=== PATIENT | male | born 1970 | race Caucasian/White ===

== ENCOUNTER 2017-12-05 06:25 | Inpatient (IN) | payer OTHER ==
[2017-11-26 15:51] VITALS: BMI 30.4
[2017-12-06 14:16] VITALS: BP 133/82; PULSE 66; TEMP 97.9
== END 2017-12-06 15:05 | disposition home or self-care (01) | DRG 304 ==
LOC: FM/S 06:25
PROVIDERS: ADMIT Orthopaedic Surgery Orthopaedic Surgery of the Spine; ATTEND Orthopaedic Surgery Orthopaedic Surgery of the Spine
PROC: 0SG30AJ Fusion of Lumbosacral Joint with Interbody Fusion Device, Posterior Approach, Anterior Column, Open Approach (ICD-10-PCS; principal; 2017-12-05)
PROC: 0ST40ZZ Resection of Lumbosacral Disc, Open Approach (ICD-10-PCS; 2017-12-05)
DX: M51.27 Other intervertebral disc displacement, lumbosacral region (principal); M43.17 Spondylolisthesis, lumbosacral region
CPT/HCPCS: 36415; 72100-TC-FY; 76001-TC-FY; 87389; 94760; 97116-GP; 97162-GP; J1100

== ENCOUNTER 2018-03-24 08:48 | Inpatient (IN) | payer OTHER ==
[2018-03-21 11:52] VITALS: BMI 30.7
[2018-03-24] MEDS ORDERED: oxyCODONE HCL 10 MG SUSTAINED ACTING TABLET PO ONE (10:18)
[2018-03-24] MEDS ORDERED: THROMBIN (BOVINE) 5,000 UNIT VIAL TP ONE (11:51)
[2018-03-24] MEDS ORDERED: LIDOCAINE 1%/EPI 1:100000 (20 ML MULTI DOSE VIAL) ONE (11:51)
[2018-03-24] MEDS ORDERED: BUPIVACAINE HCL/PF (5 MG/ML) 30 ML VIAL IJ ONE (12:29)
[2018-03-24] MEDS ORDERED: DEXAMETHASONE SOD PHOSPHATE/PF 10 MG/ML SDV ONE (12:29)
[2018-03-24] MEDS ORDERED: MIDAZOLAM HCL 2 MG/2 ML SINGLE DOSE VIAL ONE ×3 (12:29→14:17)
--- NOTE | 2018-03-24 13:38 | HP ---
Admitting History and Physical - Admission History of Present Illness: The patient is a 47 yo male who presents today for surgery with Dr. Gaxiola. He had a L5-S1 fusion in December with revision of the Left L5 hardware. He continues to have left leg pain with numbness/tingling. The patient uses gabapentin and percocet for pain control. He denies any fevers/SOB/CP today. History Source: Patient Limitations to Obtaining History: No Limitations - Past Medical History SPORTS ADMINISTRATOR: No: Migraine, Seizure Cardiovascular: No: Deep Vein Thrombosis, HTN Pulmonary: No: Asthma, Bronchitis Gastrointestinal: No: Constipation, Diverticulitis, Gastritis Renal/: Yes: Other (has 1 kidney(since )). No: Renal Calculi, UTI Heme/Onc: No: Bleeding Disorder, Hypercoaguable State Musculoskeletal: Yes: Chronic low back pain (left leg) Endocrine: No: Diabetes Mellitus - Past Surgical History Additional Past Surgical History: L5-S1 fusion Revision of Left L5 hardware - Smoking History Smoking history: Former smoker Have you smoked in the past 12 months: Yes Aproximately how many cigarettes per day: 20 If you are a former smoker, when did you quit?: 12/05/17 - Alcohol/Substance Use Hx Alcohol Use: No Home Medications - Allergies Allergies/Adverse Reactions: Allergies Allergy/AdvReac Type Severity Reaction Status Date / Time No Known Allergies Allergy Verified 03/24/18 09:09 - Home Medications Home Medications: Ambulatory Orders Ranitidine HCl [Zantac] 150 mg PO BID 12/05/17 Gabapentin 600 mg PO TID 03/21/18 Orphenadrine Citrate 600 mg PO TID 03/21/18 Oxycodone HCl/Acetaminophen [Percocet 5-325 mg Tablet] 1 tab PO Q8H PRN Review of Systems - Review of Systems Constitutional: reports: Fever. denies: Chills Neck: denies: Decreased ROM, Pain on Movement Cardiovascular: denies: Chest Pain, Palpitations Respiratory: denies: Cough, SOB Gastrointestinal: denies: Abdominal Pain, Constipation Genitourinary: denies: Burning, Dysuria, Hematuria Musculoskeletal: reports: Back Pain, Extremity Pain (left leg pain) Integumentary: reports: Incision (clean and healed) Neurological: reports: Other (left leg numbness/tingling). denies: Headache, Seizure Hematology/Lymphatic: denies: Easily Bruised, Excessive Bleeding Physical Examination Vital Signs: Vital Signs Temperature 98.0 F 03/24/18 09:11 Pulse Rate 72 03/24/18 09:11 Respiratory Rate 16 03/24/18 09:11 Blood Pressure 119/85 03/24/18 09:11 O2 Sat by Pulse Oximetry (%) 100 03/24/18 09:19 Constitutional: Yes: Well Nourished, Calm Eyes: Yes: WNL, Conjunctiva Clear. No: Sclera Icterus HENT: Yes: WNL, Atraumatic, Normocephalic Neck: Yes: WNL, Supple, Trachea Midline Cardiovascular: Yes: WNL, Regular Rate and Rhythm Respiratory: Yes: WNL, Regular, CTA Bilaterally Gastrointestinal: Yes: WNL, Normal Bowel Sounds, Soft Extremities: No: Calf Tenderness, Deformity Edema: No Peripheral Pulses WNL: Yes Peripheral Pulses: Left Doralis Pedis: 2+, Right Dorsalis Pedis: 2+ Wound/Incision: Yes: Clean/Dry, Well Approximated Neurological: Yes: WNL, Alert, Oriented ...Motor Strength: LUE, LLE (3/5 with dorsi/planar flexion/EHL), RUE, RLE Psychiatric: Yes: WNL, Alert, Oriented Problem List - Problems (1) Post-operative pain Assessment/Plan: Pt with left leg pain plan for removal of hardware today on the left side Pt remains npo IV abx at time of surgery DVT ppx with SCD/early ambulation Diet as tolerated Oral pain medications D/w Dr. Gaxiola Code(s): G89.18 - OTHER ACUTE POSTPROCEDURAL PAIN
[2018-03-24] MEDS ORDERED: BUPIVACAINE HCL/PF 0.5% (5MG/ML) 10 ML VIAL ONE (13:41)
[2018-03-24] MEDS ORDERED: LIDOCAINE HCL/PF 2% SDV 5ML VIAL ONE (13:42)
[2018-03-24] MEDS ORDERED: ONDANSETRON 4 MG/2 ML VIAL ONE (13:54)
[2018-03-24] MEDS ORDERED: ceFAZolin SODIUM 1 GM VIAL ONE (13:54)
[2018-03-24] MEDS ORDERED: LIDOCAINE 1%/EPI 1:100000 (50 ML MULTI DOSE VIAL) INF ONE (14:15)
[2018-03-24] MEDS ORDERED: PROPOFOL 20 ML ONE (14:20)
[2018-03-24] MEDS ORDERED: ONDANSETRON 4 MG/2 ML VIAL IVPUSH PRN ×2 (14:35→15:13)
[2018-03-24] MEDS ORDERED: LACTATED RINGERS SOLUTION 1,000 ML IV SCH ×2 (14:45→15:15)
[2018-03-24] MEDS ORDERED: GUM MASTIC/STORAX/MSAL/ALCOHOL 1 DRP DROPSBTL MC ONE (14:57)
[2018-03-24] MEDS ORDERED: BUPIVACAINE HCL/PF 0.25% (2.5MG/ML) 10 ML VIAL IJ ONE (15:01)
[2018-03-24] MEDS ORDERED: KETOROLAC TROMETHAMINE 30 MG/1 ML VIAL IVPUSH PRN (15:13)
[2018-03-24] MEDS ORDERED: oxyCODONE HCL 5 MG TABLET PO PRN (15:13)
[2018-03-24] MEDS ORDERED: ACETAMINOPHEN 1000 MG/100 ML VIAL (NON FORMULARY) IVPB PRN (15:13)
[2018-03-24] MEDS ORDERED: CYCLOBENZAPRINE HCL 5 MG TABLET PO PRN (15:19)
[2018-03-24] MEDS ORDERED: DOCUSATE SODIUM 100 MG CAPSULE (FP) PO PRN (15:19)
--- NOTE | 2018-03-24 15:23 | OP ---
Operative Note - Note: Operative Date: 03/24/18 Pre-Operative Diagnosis: painful hardware Operation: removal of Hardware from L5-S1 Surgeon: Griffin Gaxiola Elevator Worker: Brooke Lui Anesthesiologist/DROP HAMMER SETTER UP: Lisa Moody Anesthesia: General Specimens Removed: 2 screws/liam and two screw caps Estimated Blood Loss (mls): 20 Fluid Volume Replaced (mls): 800 Operative Report Dictated: Yes
--- NOTE | 2018-03-24 15:24 | SURG ---
Surgery Fire Watcher Note Fire Watcher: Brooke Lui PA-C Date of Service: 03/24/18 Diagnosis: painful hardware Procedure: removal of hardware from L5-S1 I was present for the entirety of the operative procedure. For further detail, please refer to operative report. Visit type - Case Type Case Type: Scheduled - Emergency Emergency Visit: No - New patient This patient is new to me today: Yes Date on this admission: 03/24/18
[2018-03-24] MEDS ORDERED: diphenhydrAMINE HCL 25 MG CAPSULE (FP) PO ONE ×2 (16:30→16:31)
[2018-03-24] MEDS: ACETAMINOPHEN 325 MG TABLET (FP) PO SCH ×2 (18:03→23:43)
[2018-03-24] MEDS: oxyCODONE HCL 5 MG TABLET PO PRN (18:08)
--- NOTE | 2018-03-24 20:36 | OP ---
DATE OF OPERATION: 03/24/2018 PREOPERATIVE DIAGNOSIS: Painful hardware. POSTOPERATIVE DIAGNOSIS: Painful hardware. PROCEDURE: Removal of hardware. SURGEON: Griffin Gaxiola MD TROUBLE LOCATOR TEST DESK: DELMI Funez ESTIMATED BLOOD LOSS: 50 mL. INTRAVENOUS FLUIDS: Per anesthesia. ANESTHESIA: Spinal block. COMPLICATIONS: None. DISPOSITION: Patient was brought the PACU in stable condition. INDICATIONS FOR SURGERY: The patient is a 47-year-old gentleman who had a spondylolisthesis at L5-S1. We had done a lumbar fusion on him. He had done well from that surgery. Soon after, he developed pain in his left leg. After further workup, it was noted that his L5 screw was medially deviated. We took him back to the operating room and was able to reposition the screw successfully. Soon after, the patient developed pain in the S1 distribution. He had undergone an epidural injection with partial relief, but then the patient continued to have pain. I had a long discussion with the patient. After further investigation, it was determined that he had continued pain on his left leg and it appears that his fusion appears to be stable. I recommended at this point that we take out the screws on the left-hand side as it is unclear to me why he continues to have pain on the left-hand side. We discussed the options to do a laminectomy and possible removal of the cage. We discussed the risks and benefits of removal of hardware versus reposition of the hardware. Patient understood the significant risks involved in this procedure and consented to the surgery. OPERATIVE NOTE: Patient was brought to the operating room by anesthesia staff. After appropriate patient identification was performed, spinal anesthesia was given. The patient was placed prone onto the OR table. His back was prepped and draped in the sterile manner. At this point, an incision was made in the left-hand side. Dissection was carried down to the fascia. The fascia was split at this time and all of the hardware was visualized. The caps were removed. The liam was removed. The screws were removed. A ball-tipped probe was put into the pedicle and I felt that there was no pedicle breech. All bleeding was well controlled at this time. The fascia was closed with a number 1 Vicryl suture. The subcutaneous tissue was closed with a 2-0 Vicryl suture. The skin was closed with 3-0 Monocryl suture. Dermabond was applied and Steri-Strips were applied. Sterile dressing was applied. The patient was placed supine on the OR bed and brought to the PACU in stable condition. Eduardo [id number]
[2018-03-24] MEDS: GABAPENTIN 300 MG CAPSULE (FP) PO SCH (21:48)
[2018-03-24] MEDS: CEFAZOLIN 1 GM/D5W 1 GM/50 ML BAG IVPB SCH (21:49)
[2018-03-24] MEDS: RANITIDINE HCL 150 MG TABLET (FP) PO SCH (21:49)
[2018-03-25] MEDS: oxyCODONE HCL 5 MG TABLET PO PRN ×2 (06:19→12:36)
[2018-03-25] MEDS: GABAPENTIN 300 MG CAPSULE (FP) PO SCH (06:19)
[2018-03-25] MEDS: ACETAMINOPHEN 325 MG TABLET (FP) PO SCH ×2 (06:20→12:35)
[2018-03-25] MEDS: CEFAZOLIN 1 GM/D5W 1 GM/50 ML BAG IVPB SCH (06:20)
--- NOTE | 2018-03-25 08:05 | DS ---
Physical Exam: SUBJECTIVE: Patient seen and examined he states that his pain is better. Voiding without difficulty. OBJECTIVE: Vital Signs Temperature 97.8 F 03/25/18 03:00 Pulse Rate 59 L 03/25/18 03:00 Respiratory Rate 19 03/25/18 03:00 Blood Pressure 128/85 03/25/18 03:00 O2 Sat by Pulse Oximetry (%) 19 L 03/25/18 07:00 PHYSICAL EXAM GENERAL: The patient is awake, alert, and fully oriented, in no acute distress. BACK: Dressing c/d/i with gauze and tegaderm. EXTREMITIES: 2+ pulses, warm, well-perfused, no edema. Left plantar flexion 4/5 EHL/dorsi flexion 3/5. RLE 5/5 dorsi/plantar/EHL flexion. NEUROLOGICAL: Normal speech, gait not observed. HOSPITAL COURSE: The patient was admitted to the Med-Surg Unit after an elective repair of their painful hardware. Now, s/p removal of left L5-S1 hardware. The day of surgery, the patient ambulated the hallways with assistance. Narcotic and non-narcotic pain management control was achieved with an oral and IV approach. Allison-operative IV ABX were administered. DVT prophylaxis was achieved with SCDs and early ambulation. Narcotic scripts and or muscle relaxants were checked with [place] [employer] prior to escibe. The discharge instructions and an oral pain management plan were reviewed with the patient. All questions answered. Above plan discussed with Dr. Gaxiola and agreed. Date of Admission:03/24/18 Date of Discharge: 03/25/18 Minutes to complete discharge: 30 Visit type - Case Type Case Type: Scheduled - Emergency Emergency Visit: No - New patient This patient is new to me today: No
[2018-03-25] MEDS: RANITIDINE HCL 150 MG TABLET (FP) PO SCH (09:51)
[2018-03-25 10:51] VITALS: BP 137/86; PULSE 80; TEMP 98.5
--- NOTE | 2018-03-25 11:12 | PN ---
Progress Note (short form) - Note Progress Note: ANESTHESIA POSTOP: 47 yo male POD#1 hardware removal. Doing well. Ambulating. Tolerating PO. No pain issues. No anesthesia complications.
== END 2018-03-25 13:28 | disposition home or self-care (01) | DRG 850 ==
LOC: FM/S 08:48
PROVIDERS: ADMIT Orthopaedic Surgery Orthopaedic Surgery of the Spine; ATTEND Orthopaedic Surgery Orthopaedic Surgery of the Spine
PROC: 0SP30JZ Removal of Synthetic Substitute from Lumbosacral Joint, Open Approach (ICD-10-PCS; principal; 2018-03-24 14:17)
DX: T85.848A Pain due to other internal prosthetic devices, implants and grafts, initial encounter (principal); Y83.8 Other surgical procedures as the cause of abnormal reaction of the patient, or of later complication, without mention of misadventure at the time of the procedure; Y92.098 Other place in other non-institutional residence as the place of occurrence of the external cause; Q60.0 Renal agenesis, unilateral; Z87.891 Personal history of nicotine dependence
CPT/HCPCS: 36415; 72100-TC-FY; 87389; 94760; G0480